=== PATIENT | female | born 1940 | race Caucasian/White ===

== ENCOUNTER → 2016-12-12 | Day surgery (SDC) | payer MEDICARE ==
[~2016-12-12] MED LIST: ASPI81TA82 PO; CALTCHW4 PO; ESTR1TAB PO; GLUC500C3 PO; HYDR-3580 PO; IOHEXOL 180 MG/ML 20 ML VIAL (for RAD DIAG) ONE; LACTATED RINGER'S 1000 ML INJ 1,000 ML ONE; LIDOCAINE HCL 1% 20 ML VIAL OTHER ONE; MIDAZOLAM HCL 2 MG/2 ML VIAL ONE; PROPOFOL 100 MG/10 ML INJ IV ONE; RIVA10 PO; TAB-TAB PO; TRIAMCINOLONE ACETONIDE 40 MG/ML VIAL ONE; VITA-13 PO; VITA400C70 PO; Z.0.COMMODE-3:1; Z.0.WALKERFRONT
--- NOTE | 2016-12-12 16:50 | TN ---
cc: SOHAN DEMPSEY DATE OF SURGERY: 12/12/2016. PREOPERATIVE DIAGNOSIS: 1. Osteoarthritis left hip. 2. Arthrofibrosis left hip. POSTOPERATIVE DIAGNOSIS: 1. Osteoarthritis left hip. 2. Arthrofibrosis left hip. OPERATIVE PROCEDURE PERFORMED: 1. Manipulation of the left hip under anesthesia. 2. Arthrogram, left hip. 3. Injection left hip with Kenalog 40 milligrams. 4. Use of fluoroscopy for needle placement. 5. Intraoperative x-ray left hip, two-views. SURGEON: Sohan Dempsey MD. ANESTHESIA: TIVA. ESTIMATED BLOOD LOSS: None. INDICATIONS FOR THE PROCEDURE: This patient is a 76-year-old female who is having progressive pain and loss of motion of her left hip. Investigative studies show evidence of moderate arthritis of the left hip. The physical examination showed loss of range of motion. She presents now for the above procedure. DESCRIPTION OF THE PROCEDURE IN DETAIL: The patient was brought to the operating room and given limited sedation. She was evaluated on the radiolucent table. Range of motion was: flexion 80, internal rotation 20, external rotation 30, abduction 20, adduction 10, extension zero. Manipulation of the left hip was performed. After manipulation, range of motion was: Flexion 110, internal rotation 30, external rotation 40, abduction 25, adduction 20. Extension was 0. The left hip was scrubbed with alcohol followed by Hibiclens followed Chloraprep and draped sterilely. Under fluoroscopy, a 22-gauge spinal needle was advanced across the anterior aspect of right hip joint. This was positioned intra-articular and confirmed. Contrast was injected. This showed mild pitting and erosive changes of the femoral head. No leak of contrast was noted. Alignment was satisfactory. She was then injected with 40 milligrams of Kenalog and 3 cc of 1% lidocaine plain. The needle was withdrawn. The hip was run through second range of motion. Intraoperative x-rays were obtained showing contrast changes consistent with the arthrogram and no evidence of a fracture. The patient was awakened and taken to the recovery room in satisfactory condition. Sohan Dempsey [place] [facility] [place]4:32 PM /4:37 PM
== END | disposition home or self-care (01) ==
LOC: ESDC 14:38
PROVIDERS: ATTEND Orthopaedic Surgery Orthopaedic Surgery of the Spine
DX: M16.12 Unilateral primary osteoarthritis, left hip (principal); M24.652 Ankylosis, left hip
CPT/HCPCS: 01200; 27275; 73502; 76000; J2250; J3010; J3301; J7120; Q9965